=== PATIENT | male | born 1990 | race African-American/Black ===

== ENCOUNTER 2024-04-15 02:05 | Emergency (ER) | payer OTHER ==
[~2024-04-15] VITALS: Ht 175.3 cm; Wt 59.0 kg
[2024-04-15 02:10] VITALS: PULSE 71; RESP 18; TEMP 98.4
[2024-04-15] MEDS ORDERED: DOXYCYCLINE HY100 MG PO (02:11)
[2024-04-15] MEDS: LIDOCAINE HCL 1% LOCAL INJ 20 ML VIAL INJ ONE (02:33)
[2024-04-15 03:06] VITALS: BP 142/66; PULSE 72; RESP 18; TEMP 98.2; O2SAT 98
== END 2024-04-15 02:30 | disposition home or self-care (01) ==
LOC: FSED 02:09
DX: L02.411 Cutaneous abscess of right axilla (principal)
CPT/HCPCS: 10060; 99283; J2001

== ENCOUNTER 2024-12-10 16:45 | Observation (INO) | payer OTHER ==
[~2024-12-10] VITALS: Ht 175.3 cm; Wt 54.4 kg
[2024-12-10 16:45] VITALS: PULSE 105; RESP 20; TEMP 97.9
[~2024-12-10 16:45] MED LIST: DOXYCYCLINE HY100 MG PO
[2024-12-10] MEDS: DEXAMETHASONE SOD PHOS 10 MG/1 ML VIAL IV ONE (17:19)
[2024-12-10] MEDS: ONDANSETRON HCL INJ 2MG/ML 2ML 2 MG/ML VIAL IV STA (17:24)
[2024-12-10] MEDS: ALBUTEROL SULF 0.083% NEB SOLN 3 ML NEB NEB STA (17:26)
[2024-12-10] MEDS: DEXAMETHASONE SOD PHOS INJ 4 MG/ML SDV IV ONE (17:26)
[2024-12-10] MEDS: SODIUM CHLORIDE 0.9% 1000ML 1,000 ML IV ONE ×2 (17:26→22:12)
[2024-12-10 18:56] LABS: ANION GAP 28.1 mmol/L (8-16); CALCIUM 9.8 mg/dL (8.4-10.2); CREATININE, SERUM 4.49 mg/dL (0.72-1.25); POTASSIUM 5.1 mmol/L (3.5-5.1)
[2024-12-10] MEDS ORDERED: SODIUM CHLORIDE FLUSH 10 ML SYR INJ PRN (19:15)
[2024-12-10] MEDS ORDERED: ONDANSETRON HCL INJ 2MG/ML 2ML 2 MG/ML VIAL IV PRN (19:15)
[2024-12-10] MEDS: SODIUM CHLORIDE 0.9% 1000ML 1,000 ML IV SCH (19:15)
[2024-12-10 19:29] LABS: TROPONIN I 0.038 ng/mL (0-0.300)
[2024-12-10] MEDS ORDERED: VENTOLIN HFA18 GM INH (22:26)
[2024-12-10 22:28] VITALS: BP 177/83; PULSE 105; RESP 20; O2SAT 95
[2024-12-10] MEDS ORDERED: ALBUTEROL/IPRATROPIUM 3 ML NEB NEB PRN (23:15)
[2024-12-10] MEDS ORDERED: ACETAMINOPHEN 325 MG TAB PO PRN (23:15)
[2024-12-10 23:52] VITALS: PULSE 101; RESP 18; O2SAT 96
[2024-12-11 00:16] VITALS: BP 143/115; PULSE 70; RESP 18; TEMP 98.5; O2SAT 100
[2024-12-11] MEDS: HYDRALAZINE HCL 20 MG/ML VIAL IV PRN (00:34)
[2024-12-11 07:38] VITALS: PULSE 97; RESP 18; O2SAT 97
[2024-12-11 08:26] LABS: BASOPHILS % 0.1 % (0.0-1.0); HEMATOCRIT 41.5 % (38.2-49.6); HEMOGLOBIN 13.8 g/dL (14.0-18.0); LYMPHOCYTES # (AUTO) 1.8 (1.0-3.2); LYMPHOCYTES % 18.6 % (18.0-39.1); MEAN CORPUSCULAR HEMOGLOBIN 26.3 pg (28-32); MEAN CORPUSCULAR HGB CONC 33.3 g/dL (31-35); MONOCYTES # (AUTO) 1.3 (0.2-0.8); NEUTROPHILS # (AUTO) 6.6 (2.1-6.9); NEUTROPHILS % 67.8 % (38.7-80.0); PLATELET COUNT 190 x10e3/uL (140-360); RED BLOOD COUNT 5.25 x10e6/uL (4.3-5.7); RED CELL DISTRIBUTION WIDTH 12.3 % (11.7-14.4); WHITE BLOOD COUNT 9.79 x10e3/uL (4.8-10.8)
[2024-12-11 08:37] VITALS: BP 142/107; PULSE 64; RESP 20; TEMP 98.6; O2SAT 100
[2024-12-11 08:46] VITALS: BP 142/107; PULSE 64; RESP 20; TEMP 98.6; O2SAT 100
[2024-12-11 08:52] LABS: MAGNESIUM 2.4 MG/DL (1.3-2.1); PHOSPHORUS 3.8 MG/DL (2.3-4.7)
[2024-12-11 08:55] LABS: ALBUMIN 3.4 g/dL (3.5-5.0); ALBUMIN/GLOBULIN RATIO 0.6 (0.8-2.0); ANION GAP 16.4 mmol/L (8-16); BILIRUBIN,TOTAL 1.4 mg/dL (0.2-1.2); CALCIUM 8.7 mg/dL (8.4-10.2); CREATININE, SERUM 1.81 mg/dL (0.72-1.25); POTASSIUM 4.4 mmol/L (3.5-5.1); TOTAL PROTEIN 9.1 g/dL (6.5-8.1)
[2024-12-11 09:37] LABS: B-TYPE NATRIURETIC PEPTIDE2 < 10.0 pg/mL (0-100)
[2024-12-11 12:07] LABS: URIC ACID 7.6 mg/dL (4.8-8.0)
[2024-12-11 12:09] VITALS: BP 142/98; PULSE 75; RESP 18; TEMP 98.1; O2SAT 98
[2024-12-11 13:43] LABS: ANION GAP 16.1 mmol/L (8-16); CALCIUM 8.6 mg/dL (8.4-10.2); CREATININE, SERUM 1.37 mg/dL (0.72-1.25); POTASSIUM 4.1 mmol/L (3.5-5.1)
[2024-12-11] MEDS ORDERED: ONDANSETRON ODT8 MG PO (14:29)
[2024-12-11 14:46] VITALS: PULSE 94; RESP 18; O2SAT 95
== END 2024-12-11 15:47 | disposition home or self-care (01) ==
LOC: FSED 16:46 → ERHOLD 20:31 → MED/SURG3 21:47
PROVIDERS: ADMIT Internal Medicine; ATTEND Internal Medicine
DX: N17.9 Acute kidney failure, unspecified (principal); E86.0 Dehydration; A08.4 Viral intestinal infection, unspecified; R11.2 Nausea with vomiting, unspecified; R19.7 Diarrhea, unspecified; J45.909 Unspecified asthma, uncomplicated; R00.0 Tachycardia, unspecified; I10 Essential (primary) hypertension; F17.210 Nicotine dependence, cigarettes, uncomplicated; F12.90 Cannabis use, unspecified, uncomplicated; Z79.899 Other long term (current) drug therapy
CPT/HCPCS: 0223U; 36415; 71046; 74176; 80048; 80053; 80076; 82550; 83036; 83518; 83605; 83735; 83880; 84100; 84443; 84484; 84550; 85025; 85379; 87400; 93005; 94799; 99284; G0378; J0360; J1100; J2405; J7030